=== PATIENT | female | born 1980 | race African-American/Black ===

== ENCOUNTER 2016-09-25 12:18 | Emergency (ER) | payer SELFPAY ==
[2011-04-01 19:42] VITALS: BMI 27.5
== END 2016-09-25 13:40 | disposition home or self-care (01) ==
LOC: D.ER 12:18
DX: S05.02XA Injury of conjunctiva and corneal abrasion without foreign body, left eye, initial encounter (principal); X58.XXXA Exposure to other specified factors, initial encounter; Y93.89 Activity, other specified; Y92.89 Other specified places as the place of occurrence of the external cause; F17.200 Nicotine dependence, unspecified, uncomplicated

== ENCOUNTER 2017-04-05 10:15 | Emergency (ER) | payer OTHER ==
[2011-04-01 19:42] VITALS: BMI 27.5
== END 2017-04-05 12:00 | disposition home or self-care (01) ==
LOC: D.ER 10:15
DX: S93.402A Sprain of unspecified ligament of left ankle, initial encounter (principal); W10.9XXA Fall (on) (from) unspecified stairs and steps, initial encounter; Y93.89 Activity, other specified; Y92.029 Unspecified place in mobile home as the place of occurrence of the external cause

== ENCOUNTER 2017-08-19 09:53 | Emergency (ER) | payer OTHER ==
[2011-04-01 19:42] VITALS: BMI 27.5
[2017-08-19 10:42] LABS: APPEARANCE CLEAR (CLEAR); COLOR YELLOW (YELLOW); GLUCOSE NEGATIVE (NEGATIVE); KETONE NEGATIVE (NEGATIVE); NITRITE NEGATIVE (NEGATIVE); PROTEIN NEGATIVE (NEGATIVE); UROBILINOGEN NORMAL (NORMAL)
[2017-08-19 10:43] LABS: BILIRUBIN NEGATIVE (NEGATIVE)
[2017-08-19 10:44] LABS: BACTERIA FEW /hpf (NONE SEEN); EPITHELIAL CELLS 0-5 /hpf (0-5); MUCUS <1+ /lpf (NONE SEEN); RED CELLS - URINE 25-50 /hpf (0-5); WHITE CELLS - URINE 0-5 /hpf (0-5)
[2017-08-19 10:59] LABS: BASOPHILS 0.3 % (0-2); EOSINOPHILS 1.2 % (0-7); HEMATOCRIT 44.8 % (36.0-48.0); HEMOGLOBIN 15.4 g/dL (12-16); IMMATURE GRANULOCYTES 0.1 % (0-5); LYMPHOCYTES 31.5 % (15-50); MCH 36.1 pg (26.0-34.0); MCHC 34.4 g/dL (31.0-37.0); MCV 104.9 fL (80.0-100.0); MEAN PLATELET VOLUME 9.4 fL (7.4-10.4); MONOCYTES 10.8 % (2-11); NEUTROPHILS 56.1 % (40-80); RBC 4.27 10x6/uL (4.00-5.40); WBC 7.4 10x3/uL (4.8-10.8)
[2017-08-19 11:03] LABS: PLATELET COUNT 273 10x3/uL (130-400)
[2017-08-19 11:19] LABS: HCG SERUM NEGATIVE (NEGATIVE)
[2017-08-19 11:29] LABS: ALBUMIN 4.3 g/dL (3.4-5.0); ALKALINE PHOSPHATASE 58 U/L (46-116); ALT (SGPT) 18 U/L (10-68); BILIRUBIN - TOTAL 0.86 mg/dL (0.2-1.3); CALC OSMOLALITY 280 mosm/kg (275-300); CALCIUM 9.1 mg/dL (8.5-10.1); CARBON DIOXIDE 21.7 mmol/L (21.0-32.0); CHLORIDE - SERUM 106 mmol/L (98-107); CREATININE - SERUM 0.7 mg/dL (0.6-1.3); GLUCOSE 89 mg/dL (74-106); POTASSIUM - SERUM 3.6 mmol/L (3.5-5.1); PROTEIN - SERUM 8.1 g/dL (6.4-8.2); SODIUM 142 mmol/L (136-145); UREA NITROGEN 9 mg/dL (7-18); eGFR NON AFRICAN AMERICAN > 90 mL/min (90-120)
== END 2017-08-19 12:02 | disposition home or self-care (01) ==
LOC: D.ER 09:53
PROVIDERS: Emergency Medicine
DX: N94.6 Dysmenorrhea, unspecified (principal); F17.200 Nicotine dependence, unspecified, uncomplicated

== ENCOUNTER 2018-06-20 16:59 | Emergency (ER) | payer OTHER ==
[~2018-06-20] VITALS: Ht 157.5 cm; Wt 59.1 kg
[2018-06-20 17:47] VITALS: Ht 157.5 cm; Wt 59.1 kg
[2018-06-20] MEDS ORDERED: EC-NAPROSYN500 MG PO (20:17)
[2018-06-20 20:31] VITALS: BP 128/81
== END 2018-06-20 20:31 | disposition home or self-care (01) ==
LOC: D.ER 16:59
DX: S60.221A Contusion of right hand, initial encounter (principal); X58.XXXA Exposure to other specified factors, initial encounter; Y93.89 Activity, other specified; Y92.89 Other specified places as the place of occurrence of the external cause; S66.911A Strain of unspecified muscle, fascia and tendon at wrist and hand level, right hand, initial encounter